=== PATIENT | female | born 1970 | race Caucasian/White ===

== ENCOUNTER → 2016-11-01 | Outpatient (REF) | LOC: ZLAB.WCH 14:47 | DX: Z01.89 Encounter for other specified special examinations (principal) ==

== ENCOUNTER → 2017-05-26 | Outpatient (CLI) | payer OTHER | LOC: COL.RAD 11:28 | DX: E21.0 Primary hyperparathyroidism (principal) | CPT/HCPCS: A9500 ==

== ENCOUNTER → 2017-05-31 | Outpatient (CLI) | payer OTHER | LOC: COL.RAD 08:55 | DX: K43.9 Ventral hernia without obstruction or gangrene (principal); Z90.710 Acquired absence of both cervix and uterus; Z98.1 Arthrodesis status | CPT/HCPCS: Q9967 ==

== ENCOUNTER 2017-06-21 05:44 | Day surgery (SDC) | payer OTHER ==
[~2017-06-21] VITALS: Ht 162.6 cm; Wt 104.5 kg
[2017-06-21 06:16] VITALS: BP 135/84; PULSE 68; TEMP 97.5
[2017-06-21] MEDS ORDERED: TIROSINT150 MC1 PO (06:53)
[2017-06-21] MEDS ORDERED: VENLAFAXINE225 MG PO (06:54)
[2017-06-21] MEDS ORDERED: ARMOUR THYROID30 MG PO (06:54)
[2017-06-21] MEDS ORDERED: LAMICTAL200 MG PO (06:55)
[2017-06-21] MEDS ORDERED: 00186-0370-20 IH (06:55)
[2017-06-21] MEDS ORDERED: PROVENTIL0.09 MG/A1 IH (06:56)
[2017-06-21] MEDS ORDERED: SINGULAIR 110 MG/TAB PO (06:56)
[2017-06-21] MEDS ORDERED: ULTRAM 50MG TAB50 MG PO (06:57)
[2017-06-21] MEDS ORDERED: KLONOPIN 1MG1 MG PO (06:58)
[2017-06-21] MEDS ORDERED: BRINTELLIX10 PO (07:00)
[2017-06-21] MEDS ORDERED: EPA FISH OIL1 SGL PO (07:00)
[2017-06-21] MEDS ORDERED: ANTI-DIARRHEAL2 MG PO (07:02)
[2017-06-21 11:14] LABS: CALCIUM 10.6 mg/dL (8.4-10.2); CREATININE, serum 0.8 mg/dL (0.52-1.25); POTASSIUM 4.3 mmol/L (3.4-5.0)
[2017-06-21 13:41] VITALS: BP 124/73; PULSE 72; TEMP 97
[2017-06-21 16:24] VITALS: BP 124/73; PULSE 73; TEMP 97
[2017-06-21 17:12] VITALS: BP 130/67; PULSE 70; TEMP 97.7
[2017-06-21 22:11] VITALS: BP 111/70; PULSE 68; TEMP 98.3
[2017-06-22 02:31] VITALS: BP 127/73; PULSE 77; TEMP 98.2
[2017-06-22 05:51] VITALS: BP 140/65; PULSE 82; TEMP 98.2
[2017-06-22 07:00] VITALS: BP 126/76; PULSE 71; TEMP 98.2
[2017-06-22 10:00] VITALS: BP 127/65; PULSE 66; TEMP 97.5
[2017-06-22] MEDS ORDERED: PERCOCET 325 MG1 TA2 PO (10:39)
[2017-06-22] MEDS ORDERED: MOTRIN 600600 MG/TAB PO ×2 (10:39→10:51)
[2017-06-22] MEDS ORDERED: ULTRAM 50MG TAB50 MG PO (10:51)
[2017-06-22] MEDS ORDERED: ZOFRAN ODT4 MG PO (10:55)
== END 2017-06-22 12:25 | disposition home or self-care (01) ==
LOC: SDCO 05:44 → SURG 10:30 → SDCO 06-22 12:25
PROVIDERS: Surgery
DX: D35.1 Benign neoplasm of parathyroid gland (principal); G47.33 Obstructive sleep apnea (adult) (pediatric); C18.9 Malignant neoplasm of colon, unspecified; E83.52 Hypercalcemia; R53.82 Chronic fatigue, unspecified; R73.9 Hyperglycemia, unspecified; J44.9 Chronic obstructive pulmonary disease, unspecified; F32.9 Major depressive disorder, single episode, unspecified; F41.9 Anxiety disorder, unspecified; F17.210 Nicotine dependence, cigarettes, uncomplicated
CPT/HCPCS: OP; A9503; J0330; J0360; J0690; J1100; J2250; J2405; J2704; J2765; J3010; J7120

== ENCOUNTER → 2017-10-17 | Outpatient (REF) ==
[~2017-10-17] MED LIST: 00186-0370-20 IH; ANTI-DIARRHEAL2 MG PO; ARMOUR THYROID30 MG PO; BRINTELLIX10 PO; EPA FISH OIL1 SGL PO; KLONOPIN 1MG1 MG PO; LAMICTAL200 MG PO; MOTRIN 600600 MG/TAB PO; PERCOCET 325 MG1 TA2 PO; PROVENTIL0.09 MG/A1 IH; SINGULAIR 110 MG/TAB PO; TIROSINT150 MC1 PO; ULTRAM 50MG TAB50 MG PO; VENLAFAXINE225 MG PO; ZOFRAN ODT4 MG PO
[2017-10-17 19:11] LABS: THYROID STIMULATING HORMONE < 0.015 uIU/mL (0.465-4.680)
== END ==
LOC: ZLAB.WCH 18:00
PROVIDERS: Family Medicine
DX: Z01.89 Encounter for other specified special examinations (principal)

== ENCOUNTER → 2017-12-30 | Outpatient (REF) ==
[2017-12-30 15:10] LABS: THYROID STIMULATING HORMONE 0.174 uIU/mL (0.465-4.680)
== END ==
LOC: ZLAB.WCH 14:16
PROVIDERS: Family Medicine
DX: Z01.89 Encounter for other specified special examinations (principal)

== ENCOUNTER 2018-01-03 12:38 | Day surgery (SDC) | payer OTHER ==
[~2018-01-03] VITALS: Ht 162.6 cm; Wt 100.5 kg
[~2018-01-03 12:38] MED LIST changes: +EFFEXOR-XR150 MG PO; -VENLAFAXINE225 MG PO
[2018-01-03] MEDS ORDERED: TOPAMAX 100MG100 M1 PO (12:56)
[2018-01-03] MEDS ORDERED: NORCO 325 MG-51 TAB PO (12:58)
[2018-01-03] MEDS ORDERED: COZAAR 50MG50 MG/TAB PO (13:00)
[2018-01-03 13:18] VITALS: BP 130/78; PULSE 57; TEMP 97.6
[2018-01-03 15:05] VITALS: BP 124/80; PULSE 57; TEMP 97.7
[2018-01-03 15:20] VITALS: BP 116/65; PULSE 51
[2018-01-03] MEDS ORDERED: QUESTRAN4 GM/9 GM PO (15:26)
[2018-01-03 15:35] VITALS: BP 123/72; PULSE 56
[2018-01-03 15:50] VITALS: BP 114/68; PULSE 63
== END 2018-01-03 15:50 | disposition home or self-care (01) ==
LOC: SDCO 12:38
DX: D12.4 Benign neoplasm of descending colon (principal); K64.0 First degree hemorrhoids; Z88.5 Allergy status to narcotic agent; K52.9 Noninfective gastroenteritis and colitis, unspecified
CPT/HCPCS: OP; J2250; J2704; J7030

== ENCOUNTER → 2018-03-10 | Outpatient (REF) ==
[~2018-03-10] MED LIST changes: +COZAAR 50MG50 MG/TAB PO; +NORCO 325 MG-51 TAB PO; +QUESTRAN4 GM/9 GM PO; +TOPAMAX 100MG100 M1 PO
[2018-03-10 17:02] LABS: THYROID STIMULATING HORMONE 0.031 uIU/mL (0.465-4.680)
== END ==
LOC: ZLAB.WCH 16:08
PROVIDERS: Family Medicine
DX: Z01.89 Encounter for other specified special examinations (principal)

== ENCOUNTER 2018-03-28 08:54 | Day surgery (SDC) | payer OTHER ==
[~2018-03-28] VITALS: Ht 162.6 cm; Wt 95.7 kg
[2018-03-28 09:27] VITALS: BP 125/83; PULSE 74; TEMP 97.7
[2018-03-28] MEDS ORDERED: ZOFRAN8 MG PO (11:13)
[2018-03-28] MEDS ORDERED: NTHROIDNT1/2 PO (11:18)
[2018-03-28] MEDS ORDERED: NTHROIDNT3/4 PO (11:19)
[2018-03-28] MEDS ORDERED: ANTI-DIARRHEAL2 MG PO (11:21)
[2018-03-28] MEDS ORDERED: MOTRIN 600600 MG/TAB PO (12:36)
[2018-03-28] MEDS ORDERED: NORCO 325 MG-51 TAB PO (12:37)
[2018-03-28] MEDS ORDERED: COLACE 100100 MG/CAP PO (12:37)
[2018-03-28 13:07] VITALS: TEMP 97.8
[2018-03-28 13:35] VITALS: BP 111/70; PULSE 61
[2018-03-28 13:50] VITALS: BP 115/75; PULSE 71
[2018-03-28 14:05] VITALS: BP 134/78; PULSE 60
[2018-03-28 14:20] VITALS: BP 129/62; PULSE 58
== END 2018-03-28 14:33 | disposition home or self-care (01) ==
LOC: SDCO 08:54
DX: K43.2 Incisional hernia without obstruction or gangrene (principal); E83.52 Hypercalcemia; R73.9 Hyperglycemia, unspecified; R53.82 Chronic fatigue, unspecified; F41.1 Generalized anxiety disorder; G47.33 Obstructive sleep apnea (adult) (pediatric); F17.210 Nicotine dependence, cigarettes, uncomplicated; I10 Essential (primary) hypertension; J44.9 Chronic obstructive pulmonary disease, unspecified; M19.90 Unspecified osteoarthritis, unspecified site; G89.29 Other chronic pain; E03.9 Hypothyroidism, unspecified; Z88.5 Allergy status to narcotic agent; Z82.49 Family history of ischemic heart disease and other diseases of the circulatory system
CPT/HCPCS: C1781; J0690; J1100; J1885; J2250; J2405; J2704; J2765; J3010; J7120

== ENCOUNTER 2018-05-29 14:25 | Emergency (ER) | payer OTHER ==
[~2018-05-29] VITALS: Ht 162.6 cm; Wt 101.4 kg
[~2018-05-29 14:25] MED LIST changes: +COLACE 100100 MG/CAP PO; +NTHROIDNT1/2 PO; +NTHROIDNT3/4 PO; +ZOFRAN8 MG PO
[2018-05-29 14:30] VITALS: TEMP 98.5
[2018-05-29 14:57] LABS: BASO % 0.4 % (0.0-2.0); EOS # 0.1 (0.0-0.7); EOS % 0.6 % (0-4.0); GRAN # 5.8 (1.4-6.5); GRAN % 70.1 % (42.2-75.2); HEMATOCRIT 43.7 % (37.0-47.0); HEMOGLOBIN 15.3 g/dl (12.5-16.0); LYMPH # 1.6 (1.2-3.4); MEAN CELL VOLUME 91 fl (80.0-100.0); MEAN CORPUSCULAR HEMOGLOBIN 32 pg (27.0-31.0); MEAN CORPUSCULAR HGB CONC 35 g/dl (33.0-37.0); MEAN PLATELET VOLUME 9.7 fl (7.4-10.4); MONO # 0.8 (0.1-0.6); MONO % 9.7 % (1.7-9.3); PLATELET COUNT 319 K/mm3 (130-400); RED BLOOD COUNT 4.78 M/mm3 (4.10-5.30); REDCELL DISTRIBUTION WIDTH-CV 12.3 % (11.5-14.5)
[2018-05-29 15:07] LABS: ALANINE AMINOTRANSFERASE 40 U/L (9-52); ALBUMIN 4.2 gm/dL (3.5-5.0); ALKALINE PHOSPHATASE 74 U/L (50-136); ANION GAP 11 mmol/L (7-16); AST,SGOT 26 U/L (15-37); BILIRUBIN,TOTAL 0.6 mg/dL (0.0-1.0); BLOOD UREA NITROGEN 10 mg/dL (7-17); CALCIUM 9.8 mg/dL (8.4-10.2); CARBON DIOXIDE 23 mmol/L (22-30); CHLORIDE 105 mmol/L (98-107); CREATININE, serum 0.73 mg/dL (0.52-1.25); GLUCOSE 124 mg/dL (74-106); POTASSIUM 3.1 mmol/L (3.4-5.0); SODIUM 139 mmol/L (137-145); TOTAL PROTEIN 7.2 gm/dL (6.4-8.2)
[2018-05-29 15:21] LABS: TROPONIN-I < 0.012 ng/mL (0.000-0.034)
[2018-05-29 16:27] LABS: MUCOUS Present /lpf; PH 8 (5-8); URINE APPEARANCE Cloudy; URINE BACTERIA Rare /hpf; URINE BILIRUBIN Negative (NEGATIVE); URINE BLOOD Negative (NEGATIVE); URINE COLOR Yellow; URINE GLUCOSE Negative (NEGATIVE); URINE KETONE Negative (NEGATIVE); URINE LEUKOCYTE ESTERASE Negative (NEGATIVE); URINE NITRATE Negative (NEGATIVE); URINE PROTEIN(semi-quant) Negative (NEGATIVE); URINE RBC 0-2 /hpf; URINE UROBILINOGEN Negative (NEGATIVE)
[2018-05-29] MEDS ORDERED: ANTIVERT 25MG25 MG PO (16:30)
[2018-05-29 16:41] VITALS: BP 130/83; PULSE 88
[2018-05-29 16:44] LABS: COLLECTION METHOD CLEAN CATCH
== END 2018-05-29 16:42 | disposition home or self-care (01) ==
LOC: COL.ER 14:25
PROVIDERS: Nurse Practitioner Primary Care
DX: R42 Dizziness and giddiness (principal); F17.210 Nicotine dependence, cigarettes, uncomplicated; Z79.1 Long term (current) use of non-steroidal anti-inflammatories (NSAID); Z79.899 Other long term (current) drug therapy

== ENCOUNTER 2018-09-04 01:55 | Emergency (ER) | payer OTHER ==
[~2018-09-04 01:55] MED LIST changes: +ANTIVERT 25MG25 MG PO
[2018-09-04 02:18] LABS: BASO # 0.1 (0.0-0.2); BASO % 0.7 % (0.0-2.0); EOS # 0.1 (0.0-0.7); EOS % 1.1 % (0-4.0); GRAN # 3.2 (1.4-6.5); GRAN % 44.9 % (42.2-75.2); HEMATOCRIT 41.1 % (37.0-47.0); HEMOGLOBIN 14.5 g/dl (12.5-16.0); LYMPH # 3.1 (1.2-3.4); LYMPH % 43.7 % (20.0-51.0); MEAN CELL VOLUME 92 fl (80.0-100.0); MEAN CORPUSCULAR HEMOGLOBIN 32 pg (27.0-31.0); MEAN CORPUSCULAR HGB CONC 35 g/dl (33.0-37.0); MEAN PLATELET VOLUME 9.7 fl (7.4-10.4); MONO # 0.6 (0.1-0.6); PLATELET COUNT 285 K/mm3 (130-400); RED BLOOD COUNT 4.48 M/mm3 (4.10-5.30); REDCELL DISTRIBUTION WIDTH-CV 12.3 % (11.5-14.5)
[2018-09-04 02:27] LABS: ALANINE AMINOTRANSFERASE 31 U/L (9-52); ALBUMIN 4.3 gm/dL (3.5-5.0); ALCOHOL(ethanol),MEDICAL 237 mg/dL; ALKALINE PHOSPHATASE 61 U/L (50-136); ANION GAP 10 mmol/L (7-16); AST,SGOT 20 U/L (15-37); BILIRUBIN,TOTAL 0.2 mg/dL (0.0-1.0); BLOOD UREA NITROGEN 7 mg/dL (7-17); CALCIUM 9.3 mg/dL (8.4-10.2); CARBON DIOXIDE 23 mmol/L (22-30); CHLORIDE 113 mmol/L (98-107); CREATININE, serum 0.71 mg/dL (0.52-1.25); GLUCOSE 129 mg/dL (74-106); POTASSIUM 3.4 mmol/L (3.4-5.0); SODIUM 146 mmol/L (137-145)
[2018-09-04 02:28] LABS: ACETAMINOPHEN < 10 ug/mL (10-30); SALICYLATE < 1.0 mg/dL
[2018-09-04] MEDS ORDERED: UNABLE TO OBTAIN (02:59)
[2018-09-04 04:42] VITALS: TEMP 97.5
[2018-09-04 05:49] VITALS: BP 101/63; PULSE 73
== END 2018-09-04 05:55 | disposition home or self-care (01) ==
LOC: COL.ER 01:55
PROVIDERS: Emergency Medicine
DX: F10.129 Alcohol abuse with intoxication, unspecified (principal); E66.9 Obesity, unspecified; I10 Essential (primary) hypertension; E03.9 Hypothyroidism, unspecified; J45.909 Unspecified asthma, uncomplicated; F17.210 Nicotine dependence, cigarettes, uncomplicated; Y90.8 Blood alcohol level of 240 mg/100 ml or more; Z90.710 Acquired absence of both cervix and uterus; Z98.51 Tubal ligation status; Z98.890 Other specified postprocedural states

== ENCOUNTER → 2018-11-27 | Outpatient (CLI) | payer OTHER ==
[~2018-11-27] MED LIST changes: +UNABLE TO OBTAIN
== END ==
LOC: COL.RAD 11:41
DX: M48.07 Spinal stenosis, lumbosacral region (principal); M54.16 Radiculopathy, lumbar region; M96.1 Postlaminectomy syndrome, not elsewhere classified; Z98.1 Arthrodesis status

== ENCOUNTER 2019-01-01 16:29 | Emergency (ER) | payer OTHER ==
[~2019-01-01] VITALS: Ht 162.6 cm; Wt 81.8 kg
[2019-01-01 16:38] VITALS: TEMP 97.1
[2019-01-01 19:31] VITALS: BP 127/82; PULSE 76
== END 2019-01-01 19:35 | disposition home or self-care (01) ==
LOC: COL.ER 16:29
DX: G43.909 Migraine, unspecified, not intractable, without status migrainosus (principal); I10 Essential (primary) hypertension; J45.909 Unspecified asthma, uncomplicated; F17.210 Nicotine dependence, cigarettes, uncomplicated; Z88.5 Allergy status to narcotic agent; Z90.710 Acquired absence of both cervix and uterus
CPT/HCPCS: J1200; J1885; J2405

== ENCOUNTER 2019-05-01 08:32 | Emergency (ER) | payer SELFPAY ==
[~2019-05-01] VITALS: Ht 162.6 cm; Wt 81.8 kg
[2019-05-01 08:39] VITALS: BP 129/86; TEMP 98.6
[2019-05-01 09:45] VITALS: PULSE 82
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
== END 2019-05-01 09:45 | disposition home or self-care (01) ==
LOC: COL.ER 08:32
DX: S01.111A Laceration without foreign body of right eyelid and periocular area, initial encounter (principal); J44.9 Chronic obstructive pulmonary disease, unspecified; E03.9 Hypothyroidism, unspecified; F17.210 Nicotine dependence, cigarettes, uncomplicated; Z88.5 Allergy status to narcotic agent; Z98.51 Tubal ligation status; Z23 Encounter for immunization; Y00.XXXA Assault by blunt object, initial encounter; Y92.009 Unspecified place in unspecified non-institutional (private) residence as the place of occurrence of the external cause

== ENCOUNTER 2019-05-08 08:33 | Emergency (ER) | payer OTHER ==
[2019-05-08 08:51] VITALS: BP 117/81; PULSE 64; TEMP 97.7
== END 2019-05-08 08:52 | disposition home or self-care (01) ==
LOC: COL.ER 08:33
DX: S01.111D Laceration without foreign body of right eyelid and periocular area, subsequent encounter (principal); X58.XXXD Exposure to other specified factors, subsequent encounter

== ENCOUNTER → 2021-02-06 | Outpatient (CLI) | payer OTHER ==
[2021-02-06 12:34] LABS: BASO # 0.1 (0.0-0.2); BASO % 0.8 % (0.0-2.0); EOS # 0.3 (0.0-0.7); EOS % 3.5 % (0-4.0); GRAN # 3.8 (1.4-6.5); HEMATOCRIT 40.8 % (37.0-47.0); HEMOGLOBIN 13.9 g/dl (12.5-16.0); LYMPH # 2.7 (1.2-3.4); LYMPH % 36.6 % (20.0-51.0); MEAN CELL VOLUME 94 fl (80.0-100.0); MEAN CORPUSCULAR HEMOGLOBIN 32 pg (27.0-31.0); MEAN CORPUSCULAR HGB CONC 34 g/dl (33.0-37.0); MEAN PLATELET VOLUME 10.1 fl (7.4-10.4); MONO # 0.6 (0.1-0.6); MONO % 7.7 % (1.7-9.3); PLATELET COUNT 271 K/mm3 (130-400); RED BLOOD COUNT 4.36 M/mm3 (4.10-5.30); REDCELL DISTRIBUTION WIDTH-CV 12.6 % (11.5-14.5)
[2021-02-06 12:47] LABS: BILIRUBIN,TOTAL 0.3 mg/dL (0.0-1.0); CALCIUM 9.3 mg/dL (8.4-10.2); CHOLESTEROL RISK RATIO 2.3; CREATININE, serum 0.71 (0.52-1.25); TOTAL PROTEIN 6.7 gm/dL (6.4-8.2)
[2021-02-06 13:32] LABS: THYROID STIMULATING HORMONE 0.131 uIU/mL (0.465-4.680)
== END ==
LOC: COL.LAB 11:05
DX: Z79.899 Other long term (current) drug therapy (principal)

== ENCOUNTER → 2022-04-30 | Outpatient (CLI) | payer MEDICAID | LOC: COL.RAD 11:25 | DX: R10.33 Periumbilical pain (principal) | CPT/HCPCS: Q9967 ==

== ENCOUNTER → 2022-06-10 | Outpatient (CLI) | payer MEDICAID | LOC: MC.RAD 09:58 | DX: R92.8 Other abnormal and inconclusive findings on diagnostic imaging of breast (principal) ==

== ENCOUNTER → 2024-02-02 | Outpatient (CLI) | payer MEDICAID ==
[~2024-02-02] MED LIST changes: +AMBIEN 10MG10 MG PO; +COZAAR100 MG PO; +DESYREL DIVIDO150 M1 PO; +DETROL 2MG TAB2 MG PO; +EUTHYROX200 MCG PO; +NP THYROID90 MG PO; +VISTARIL50 MG PO; +WELLBUTRIN XL150 MG PO; +XANAX 1MG1 MG PO
== END ==
LOC: COL.RAD 14:08
DX: M47.26 Other spondylosis with radiculopathy, lumbar region (principal); M16.0 Bilateral primary osteoarthritis of hip; M70.61 Trochanteric bursitis, right hip; M70.62 Trochanteric bursitis, left hip

== ENCOUNTER → 2024-03-01 | Outpatient (CLI) | payer MEDICAID | LOC: COL.RAD 10:45 | DX: M48.061 Spinal stenosis, lumbar region without neurogenic claudication (principal); M96.1 Postlaminectomy syndrome, not elsewhere classified; P05.14 Newborn small for gestational age, 1000-1249 grams ==

== ENCOUNTER 2024-06-09 13:28 | Emergency (ER) | payer MEDICAID ==
[~2024-06-09] VITALS: Ht 162.6 cm; Wt 111.4 kg
[2024-06-09 13:39] VITALS: BP 128/77; TEMP 97.9
[2024-06-09 14:42] LABS: COLLECTION METHOD CLEAN CATCH
[2024-06-09 14:46] LABS: BASO % 0.6 % (0.0-2.0); EOS # 0.3 K/mm3 (0.0-0.7); EOS % 4.2 % (0.0-4.0); GRAN % 48.2 % (42.2-75.2); HEMATOCRIT 47.5 % (37.0-47.0); HEMOGLOBIN 16.4 g/dl (12.5-16.0); LYMPH # 2.3 K/mm3 (1.2-3.4); LYMPH % 36.1 % (20.0-51.0); MEAN CELL VOLUME 95 fl (80.0-100.0); MEAN CORPUSCULAR HEMOGLOBIN 33 pg (27-31); MEAN CORPUSCULAR HGB CONC 35 g/dl (33.0-37.0); MEAN PLATELET VOLUME 10.5 fl (7.4-10.4); MONO # 0.7 K/mm3 (0.1-0.6); MONO % 10.9 % (1.7-9.3); PLATELET COUNT 238 K/mm3 (130-400); RED BLOOD COUNT 5.02 M/mm3 (4.10-5.30)
[2024-06-09 14:47] LABS: PH 5.5 (5.0-8.5); URINE APPEARANCE CLOUDY (CLEAR/HAZY); URINE BLOOD NEGATIVE (NEGATIVE); URINE COLOR YELLOW (YELLOW); URINE GLUCOSE NEGATIVE (NEGATIVE); URINE KETONE NEGATIVE (NEGATIVE); URINE NITRATE NEGATIVE (NEGATIVE); URINE PROTEIN(semi-quant) NEGATIVE (NEGATIVE); URINE UROBILINOGEN 0.2 E.U/dL (0.2-1.0)
[2024-06-09 15:13] LABS: ALBUMIN 4.3 g/dL (3.5-5.0); BILIRUBIN,TOTAL 0.3 mg/dL (0.2-1.2); CALCIUM 10.3 mg/dL (8.4-10.2); CREATININE, serum 0.8 mg/dL (0.57-1.11); POTASSIUM 3.7 mEq/L (3.5-4.5); TOTAL PROTEIN 6.9 g/dl (6.2-8.1)
[2024-06-09 15:21] LABS: TROPONIN-I 0.013 ng/mL (0.00-0.033)
[2024-06-09] MEDS ORDERED: ANTIVERT 25MG25 MG PO (15:50)
[2024-06-09 15:52] VITALS: PULSE 63
== END 2024-06-09 16:17 | disposition home or self-care (01) ==
LOC: COL.ER 13:28
PROVIDERS: Nurse Practitioner
DX: R42 Dizziness and giddiness (principal); F17.200 Nicotine dependence, unspecified, uncomplicated

== ENCOUNTER → 2024-06-11 | Outpatient (CLI) | payer MEDICAID | LOC: MHCPAIN 14:46 | DX: M51.26 Other intervertebral disc displacement, lumbar region (principal); M48.061 Spinal stenosis, lumbar region without neurogenic claudication; M43.16 Spondylolisthesis, lumbar region; M96.1 Postlaminectomy syndrome, not elsewhere classified; M54.16 Radiculopathy, lumbar region | CPT/HCPCS: G0463 ==